=== PATIENT | female | born 1985 | race Caucasian/White ===

== ENCOUNTER 2016-08-08 18:23 | Emergency (ER) | payer MEDICAID, OTHER ==
[~2016-08-08] VITALS: Ht 165.1 cm; Wt 64.0 kg
[~2016-08-08 18:23] MED LIST: AUGM875T PO; TYLE3 PO
[2016-08-08 18:26] VITALS: BP 150/88; PULSE 74; RESP 20; TEMP 97.9; O2SAT 100
[2016-08-08] MEDS ORDERED: DICL50TA3 PO (18:59)
[2016-08-08] MEDS ORDERED: CLIN150 PO (18:59)
[2016-08-08] MEDS ORDERED: CLINDAMYCIN 150 MG CAP PO ONE (19:00)
[2016-08-08] MEDS ORDERED: ACETAMINOPHEN/HYDROcodone 325 MG/5 MG TAB PO ONE (19:00)
--- NOTE | 2016-08-08 19:02 | PD ---
HPI Chief Complaint: Oral / Dental Pain or Problem Time Seen by Provider: 18:59 Travel History International Travel<30 days: No Contact w/Intl Traveler<30days: No Traveled to known affect area: No History of Present Illness HPI 30-year-old white female presents to emergency department with complains of left facial pain and swelling. She states that she's had pain in her left lower mandible from a dental problem. She called her dentist and has an appointment for this . Her pain has been present now for last several days and getting worse. She has had difficulty opening her mouth. She denies any fever or chills. No ear pain or sore throat. No cough or congestion. No nausea vomiting. She states the pain is moderate. No alleviating or aggravating activity PFSH Past Medical History Bipolar Disorder: Yes Anxiety: Yes Cardiovascular Problems: Yes (HEART MURMUR) Diminished Hearing: Yes Genitourinary: Yes Immunizations Current: Yes LMP: 08/07/16 : 6 Para: 3 Miscarriage: 1 : 2 Dilation and Curettage (D&C): Yes (01/30/14) Past Surgical History Gynecologic Surgery: Yes (D&C 2013) Other Surgery: Yes (CYST REMOVAL) Social History Alcohol Use: Yes (OCCASIONALLY) Tobacco Use: Yes (1 PPD) Substance Use: No Allergies-Medications (Allergen,Severity, Reaction): Coded Allergies: Benadryl (Verified Allergy, Severe, Hives, 08/08/16) Tramadol (Unverified Allergy, Severe, Nausea/Vomiting, 08/08/16) Reported Meds & Prescriptions Reported Meds & Active Scripts Active Diclofenac Sodium DR (Diclofenac Sodium) 50 Mg Tabdr 50 Mg PO TID Cleocin (Clindamycin HCl) 150 Mg Cap 300 Mg PO Q6H Augmentin 875 mg Tab (Amoxicillin & Pot Clavulanate 875 mg Tab) 875 Mg Tab 875 Mg PO BID Tylenol #3 (Acetaminophen/Codeine Phosphate) Acetaminophen 300/30 Codeine Tab 1 Tab PO Q6H PRN FOR PAIN Review of Systems Except as stated in HPI: all other systems reviewed are Neg Physical Exam Narrative GENERAL: Well-developed, well-nourished in no acute distress. Nontoxic appearing. HEAD: Normocephalic, atraumatic. EYES: Pupils equal round and reactive. Extraocular motions intact. No scleral icterus. No injection or drainage. ENT: TMs clear without erythema. The external auditory canals clear. Nose: clear . Posterior pharynx is pink and moist. No tonsillar edema or exudate. Uvula midline. Airway patent. Patient has some swelling of the gingiva of the left lower mandible. There is no obvious large dental carry. She has some swelling of the lateral left cheek. The floor the mouth is normal. She is phonating normally. She has mild trismus. NECK: Trachea midline.Supple, nontender, moves head freely. No central bony tenderness or spasm. CARDIOVASCULAR: Regular rate and rhythm without murmurs, gallops, or rubs. RESPIRATORY: Clear to auscultation. Breath sounds equal bilaterally. No wheezes , rales, or rhonchi. GASTROINTESTINAL: Abdomen soft, non-tender, nondistended. No hepato-splenomegaly , or palpable masses. No guarding. EXTREMITIES: No clubbing, cyanosis, or edema. No joint tenderness, effusion, or edema noted. BACK: Nontender without deformity or crepitance. No flank tenderness. Data Data Last Documented VS Vital Signs Date Time Temp Pulse Resp B/P Pulse Ox O2 Delivery O2 Flow Rate FiO2 08/08/16 18:26 97.9 74 20 150/88 100 Room Air Orders Clindamycin (Cleocin) (08/08/16 19:00) Acetamin-Hydrocod 325-5 Mg ([place] 5-325 (08/08/16 19:00) MDM Medical Decision Making Medical Screen Exam Complete: Yes Emergency Medical Condition: Yes Medical Record Reviewed: Yes Differential Diagnosis MDM: Moderate Differential diagnoses: Dental abscess, dental caries, osteitis, cellulitis Narrative Course Patient's given clindamycin 300 mg and Lortab 5 milligram by mouth. This is dental abscess Diagnosis Primary Impression: Dental abscess Patient Instructions: Narcotic given in the ED, General Instructions Additional Instructions: Rest. Saltwater gargles. Todd oil on cotton balls. Clindamycin and diclofenac. follow-up with a dentist as soon as possible. And return to the ER if any problems. Med/Other Pt SpecificInfo: Prescription(s) given Scripts Diclofenac Sodium DR 50 Mg Tabdr50 Mg PO TID #30 TAB Prov:Espinoza Perez MD 08/08/16 Clindamycin (Cleocin)150 Mg Uiv187 Mg PO Q6H #80 CAP Prov:Espinoza Perez MD 08/08/16 Disposition: 01 DISCHARGE HOME Condition: Stable Padilla Montiel Aug 08, 2016 19:02
== END 2016-08-08 19:24 | disposition home or self-care (01) ==
LOC: NEPB 18:23
DX: K04.7 Periapical abscess without sinus (principal); K08.89 Other specified disorders of teeth and supporting structures; H91.90 Unspecified hearing loss, unspecified ear; F17.200 Nicotine dependence, unspecified, uncomplicated; Z86.79 Personal history of other diseases of the circulatory system; Z87.448 Personal history of other diseases of urinary system; Z86.59 Personal history of other mental and behavioral disorders
CPT/HCPCS: 99283